=== PATIENT | male | born 1990 | race Caucasian/White ===

== ENCOUNTER 2022-04-07 13:31 | Emergency (ER) | payer BC ==
[2022-04-07 13:56] VITALS: BP 151/94; PULSE 73; TEMP 98.2; BMI 32.1
[2022-04-07 16:55] LABS: BASO % 0.3 % (0-2.0); EOS % 1.1 % (0-4.5); HEMATOCRIT 45.9 % (35.4-49); HEMOGLOBIN 15.5 GM/dL (11.7-16.9); MCH 31.1 pg (25.7-33.7); MCHC 33.7 g/dl (32.0-35.9); MEAN CELL VOLUME 92.4 fl (80-96); MONO % 8.2 % (3.8-10.2); NEUT % 68.4 % (42.8-82.8); RBC 4.97 M/mm3 (4.00-5.60); RDW 14.3 % (11.9-15.9); WHITE BLOOD COUNT 6.7 K/mm3 (4.0-10.0)
[2022-04-07 17:08] LABS: CALCIUM 9.7 mg/dL (8.5-10.1)
[2022-04-07 17:09] LABS: ALBUMIN 4.8 g/dl (3.4-5.0); BLOOD UREA NITROGEN 15.3 mg/dL (7-18)
[2022-04-07 17:13] LABS: BILIRUBIN,TOTAL 0.6 mg/dL (0.2-1); TOT PROT 8.8 g/dl (6.4-8.2)
[2022-04-07 17:42] LABS: PLATELET ESTIMATE NORMAL
[2022-04-07 17:43] LABS: MEAN PLT VOLUME 10.7 fl (7.5-11.1); PLATELET COUNT 120 10^3/uL (134-434)
== END 2022-04-07 18:01 | disposition home or self-care (01) ==
LOC: JER 13:31
DX: R19.8 Other specified symptoms and signs involving the digestive system and abdomen (principal)
CPT/HCPCS: 36415; 80053; 85025; 99283-25